=== PATIENT | male | born 1980 | race Two or more races ===

== ENCOUNTER 2024-05-30 05:10 | Day surgery (SDC) | payer OTHER ==
[2024-05-22 11:46] VITALS: BP 140/87
[~2024-05-30] VITALS: Ht 177.8 cm; Wt 111.6 kg
[~2024-05-30 05:10] MED LIST: COZAAR100 MG PO
[2024-05-30] MEDS ORDERED: METRONIDAZOLE/SODIUM CHLORIDE 500 MG/100 ML PIGGYBACK IV ONE ×2 (06:23→07:45)
[2024-05-30] MEDS ORDERED: CEFTRIAXONE SODIUM 2,000 MG VIAL ONE (06:23)
[2024-05-30] MEDS ORDERED: HYDROGEN PEROXIDE 118 ML SOLUTION TOP ONE (07:45)
[2024-05-30] MEDS ORDERED: POVIDONE-IODINE 118 ML BOTT TOP ONE (07:45)
[2024-05-30] MEDS ORDERED: BUPIVACAINE HCL 30 ML VIAL IJ ONE (07:45)
[2024-05-30] MEDS ORDERED: CEFTRIAXONE SODIUM 2,000 MG VIAL IV ONE (07:45)
[2024-05-30] MEDS ORDERED: LIDOCAINE HCL 1%/EPINEPHRINE 20ML VIAL IJ ONE (07:45)
[2024-05-30] MEDS ORDERED: HEMOSTATIC MATRIX 1 KIT KIT TOP ONE (07:45)
[2024-05-30] MEDS ORDERED: DIBUCAINE 30 GM TUBE RECTAL ONE (08:15)
[2024-05-30] MEDS ORDERED: MORPHINE SULFATE 4 MG/ML VIAL IV ONE ×2 (10:55→11:20)
== END 2024-05-30 13:20 | disposition home or self-care (01) ==
LOC: CIR.AMB 05:10
PROVIDERS: ATTEND Colon & Rectal Surgery
DX: K60.3 Anal fistula (principal); L92.9 Granulomatous disorder of the skin and subcutaneous tissue, unspecified